=== PATIENT | female | born 1985 | race Two or more races ===

== ENCOUNTER 2024-07-21 16:33 | Inpatient (IN) ==
--- NOTE | 2024-07-21 16:39 | ED Physician Documentation ---
History of Present Illness Stated complaint Stated Complaint: TRAUMA/ DOG BITE Chief complaint Chief Complaint: Trauma Ext History obtained from History obtained from: Patient and EMS History of Present Illness Pain level max: 9 Pain level now: 9 Additonal information Additional information: 39-year-old female presents to the emergency department stating that she was bit by a dog on the forearm. She states it was a neighbors dog. Unknown last tetanus shot. Patient has pain to the right arm. There are also some slight abrasions to the lower abdomen. Not on blood thinners. Does not take any medications at home. Denies being . A tourniquet was applied to the right upper arm by EMS and the patient was activated as a full trauma by nursing staff. Patient denies any numbness or tingling. Review of Systems Constitutional Denies: Fever or Chills Respiratory Denies: Cough Meds/Allgy Allergies Allergies Allergy/AdvReac Type Severity Reaction Status Date / Time house dust mite Allergy Severe angioedema Verified 07/21/24 16:49 sumatriptan (From Imitrex) Allergy Severe throat Verified 07/21/24 21:18 swelling ibuprofen Allergy Edema Verified 07/21/24 21:18 PFSH Active Problems All Active Problems (Updated 07/21/24 @ 16:51 by Ty Jung MD) Dog bite of right forearm (Acute) Medical History Medical History (Updated 07/21/24 @ 16:51 by Ty Jung MD) No pertinent past medical history Surgical History Surgical History (Updated 07/21/24 @ 16:51 by Karen Chong RN) No pertinent past surgical history Social History Social History (Updated 07/21/24 @ 16:51 by Karen Chong RN) Smoking Status: Never smoker Living arrangement: At home Living Condition: With family Relationship: Do you feel safe in your home environment?: Yes Suffered physical, verbal, emotional, or financial abuse?: No ETOH Use: Wine Frequency: Occasional Substance Use: denies use Exam Exam Vital Signs: Vital Signs x48h Temp Pulse Resp BP Pulse Ox 07/21/24 18:15 80 14 112/55 L 98 07/21/24 18:00 87 16 102/61 98 07/21/24 17:15 84 14 102/54 L 95 07/21/24 17:03 81 16 120/77 96 07/21/24 16:39 36.5 C 82 20 120/77 97 Constitutional normal general appearance and no apparent distress HENMT normocephalic and head/scalp atraumatic Eyes PERRL Neck/C-Spine trachea midline Respiratory breath sounds equal bilaterally and normal respiratory effort Cardiovascular normal heart rate noted and regular rhythm noted Gastrointestinal abdomen soft to palpation, nontender to palpation and nondistended Back/Pelvis no thoracic spine tenderness and no lumbar spine tenderness Extremities Right forearm has a large gaping laceration down through the muscle. Neurovascularly intact. Able to move fingers and hand but limited examination secondary to pain. Psychiatry oriented x3 Skin skin color normal Results Vitals Vitals: Vital Signs - 24 hr 07/21/24 16:39 07/21/24 16:52 07/21/24 17:03 Temperature 36.5 C Temperature Source Temporal Artery Scan Pulse Rate 82 81 Respiratory Rate 20 16 Blood Pressure 120/77 120/77 O2 Saturation 97 96 O2 Source Room air Room air Pain Intensity 6 10 07/21/24 17:14 07/21/24 17:15 07/21/24 18:00 Temperature Temperature Source Pulse Rate 84 87 Respiratory Rate 14 16 Blood Pressure 102/54 L 102/61 O2 Saturation 95 98 O2 Source Room air Room air Pain Intensity 8 07/21/24 18:15 Temperature Temperature Source Pulse Rate 80 Respiratory Rate 14 Blood Pressure 112/55 L O2 Saturation 98 O2 Source Room air Pain Intensity Oxygen O2 Source Room air Labs Labs: Laboratory Tests 07/21/24 17:10 WBC 15.9 H RBC 4.60 Hgb 13.9 Hct 42.0 MCV 91.3 MCH 30.2 MCHC 33.1 RDW 13.3 Plt Count 270 MPV 11.2 H Neut # (Auto) 12.2 H Lymph # (Auto) 2.9 [place] # (Auto) 0.6 Eos # (Auto) 0.1 Baso # (Auto) 0.1 Absolute Nucleated RBC 0.00 Nucleated RBC % 0.0 Sodium 138 Potassium 3.3 L Chloride 105 Carbon Dioxide 22 Anion Gap 11.0 BUN 16 Creatinine 0.9 Estimated GFR (MDRD) 70 L Glucose 123 H Calcium 8.8 Total Bilirubin 0.5 AST 23 ALT 26 Alkaline Phosphatase 64 Total Protein 7.6 Albumin 4.2 Globulin 3.4 Albumin/Globulin Ratio 1.2 Serum HCG, Qual NEGATIVE Rads (name of study) R forearm xray: Relevant Findings:: Final report received PD Medical Decision Making ED course Complexity details: reviewed results, re-evaluated patient, considered differential and d/w patient ED course: 39-year-old female with a significant dog bite to the right forearm deep gaping wound through the muscle belly. Given IV Unasyn. Tdap given. Discussed the case with Dr. Mrax, orthopedics who came and evaluated the patient and will take her to the operating room for washout and closure. Only other dog injuries that I see are small abrasions on the abdomen that do not require further care. No ot her acute traumatic injuries This document was made in part using voice recognition software. While efforts are made to proofread this document, sound alike and grammatical errors may occur. Discharge Plan Discharge Patient Disposition: ED Transfer to [facility] Condition: Stable Clinical Impression: Dog bite of right forearm Qualifiers: Encounter type: initial encounter Qualified Code(s): S51.851A - Open bite of right forearm, initial encounter Interventions: ED Admission Assessment Last Done: 07/21/24 18:20
[2024-07-21] MEDS: HYDROmorphone 1 MG/ML SYRINGE IVP STA ×2 (16:52→17:14)
[2024-07-21] MEDS: TETANUS/DIPHTHERIA/PERTUSSIS 0.5 ML SYRINGE IM ONE (16:53)
[2024-07-21] MEDS: AMPICILLIN/SULBACTAM 3 GM in SODIUM CHLORIDE 0.9% MINIBAG 100 ML IV STA (16:53)
--- NOTE | 2024-07-21 17:05 | XRAY Report ---
PROCEDURE: XR Forearm RT INDICATIONS: BOG BITE TO THE ARM TECHNIQUE: 2 views of the forearm were acquired. COMPARISON: None. FINDINGS: Bones: No fractures or dislocations. No suspicious bony lesions. Soft tissues: Extensive soft tissue laceration over dorsal and ulnar aspect of right forearm is seen. No radiopaque foreign body is noted. IMPRESSION: No acute forearm fracture or dislocation. Extensive soft tissue laceration in dorsal and ulnar aspect of proximal to mid forearm. No radiopaque foreign body. Reviewed by: Brandon Adams MD on 07/21/2024 5:04 PM PDT Approved by: Brandon Adams MD on 07/21/2024 5:04 PM PDT Station ID: [id number]
--- NOTE | 2024-07-21 17:11 | ANESTHESIA PROCEDURE NOTE ---
Pre-Anesthesia VS, & Labs Diagnosis Surgical Diagnosis:: R FA dog bite laceration Procedure Procedure: I&D R FA laceration/closure Vitals Vital Signs: Temp Pulse Resp BP Pulse Ox 36.5 C 82 20 120/77 97 07/21/24 16:39 07/21/24 16:39 07/21/24 16:39 07/21/24 16:39 07/21/24 16:39 NPO NPO: >8 hours Is Patient ?: No Lab Results Lab results reviewed: Yes Meds/Allgy Allergies Allergies Allergy/AdvReac Type Severity Reaction Status Date / Time house dust mite Allergy Severe angioedema Verified 07/21/24 16:49 sumatriptan (From Imitrex) Allergy Severe throat Verified 07/21/24 16:49 swelling PFSH Active Problems All Active Problems (Updated 07/21/24 @ 16:51 by Ty Jung MD) Dog bite of right forearm (Acute) Medical History Medical History (Updated 07/21/24 @ 16:51 by Ty Jung MD) No pertinent past medical history Surgical History Surgical History (Updated 07/21/24 @ 16:51 by Karen Chong RN) No pertinent past surgical history Social History Social History (Updated 07/21/24 @ 16:51 by Karen Chong RN) Smoking Status: Never smoker Living arrangement: At home Living Condition: With family Relationship: Do you feel safe in your home environment?: Yes Suffered physical, verbal, emotional, or financial abuse?: No ETOH Use: Wine Frequency: Occasional Substance Use: denies use POLST Patient has POLST: No Anesthesia Exam (Expanded) Exam General: Alert, Oriented x3, Cooperative and Mild distress Dental: WNL Mouth Openin Fingerbreadth Neck Mobility: Normal Mallampati classification: II Thyromental Distance: 4-6 cm Respiratory: Lungs clear, Normal breath sounds and No respiratory distress Cardiovascular: Regular rate Neurological: Normal speech Mental/Cognitive Status: Alert/Oriented X3 and Normal for patient Cognitive Status: Within normal limits Exam Exam Vital Signs: Vital Signs x48h Temp Pulse Resp BP Pulse Ox 07/21/24 16:39 36.5 C 82 20 120/77 97 Plan Plan Anesthesia Type: General Consent for Procedure(s) Verified and Reviewed: Yes Code Status: Attempt Resuscitation ASA Classification ASA classification: 2-Mild systemic disease Is this case an emergency?: Yes
[2024-07-21 17:18] LABS: BASOPHILS # (AUTO) 0.1 10^3/uL (0.0-0.1); BASOPHILS % (AUTO) 0.5 %; EOSINOPHILS # (AUTO) 0.1 10^3/uL (0.0-0.7); EOSINOPHILS % (AUTO) 0.4 %; HGB - HEMOGLOBIN 13.9 g/dL (12.0-16.0); LYMPHOCYTES # (AUTO) 2.9 10^3/uL (1.5-3.5); LYMPHOCYTES % (AUTO) 18.1 %; MEAN CORPUSCULAR HEMOGLOBIN 30.2 pg (27.0-31.0); MEAN CORPUSCULAR HGB CONC 33.1 g/dL (32.0-36.0); MEAN CORPUSCULAR VOLUME 91.3 fL (81.0-99.0); MEAN PLATELET VOLUME 11.2 fL (7.9-10.8); MONOCYTES # (AUTO) 0.6 10^3/uL (0.0-1.0); NEUTROPHILS # (AUTO) 12.2 10^3/uL (1.5-6.6); NEUTROPHILS % (AUTO) 76.7 %; PLT - PLATELET COUNT 270 10^3/uL (130-450); RED CELL DISTRIBUTION WIDTH 13.3 % (12.0-15.0); WHITE BLOOD COUNT 15.9 x10^3/uL (4.8-10.8)
[2024-07-21] MEDS ORDERED: LIDOCAINE-PF 2% 10 ML AMP SUBQ ONE (17:20)
[2024-07-21] MEDS ORDERED: fentaNYL 100 MCG/2 ML VIAL ONE (17:20)
[2024-07-21] MEDS ORDERED: MIDAZOLAM 2 MG/2 ML VIAL ONE (17:20)
[2024-07-21] MEDS ORDERED: PROPOFOL 200 MG/20 ML VIAL IVP ONE (17:20)
[2024-07-21 17:39] LABS: ALBUMIN 4.2 g/dL (3.2-5.5); ALBUMIN/GLOBULIN RATIO 1.2 (1.0-2.2); ALKALINE PHOSPHATASE 64 IU/L (42-121); ALT ALANINE AMINOTRANSFERASE 26 IU/L (10-60); AST ASPARTATE AMINOTRANSFERASE 23 IU/L (10-42); BILIRUBIN,TOTAL 0.5 mg/dL (0.2-1.0); BUN - BLOOD UREA NITROGEN 16 mg/dL (6-20); CALCIUM 8.8 mg/dL (8.5-10.3); CARBON DIOXIDE - CO2 22 mmol/L (21-32); CHLORIDE 105 mmol/L (101-111); CREATININE 0.9 mg/dL (0.6-1.3); GFR - MDRD 70 (>89); GLUCOSE 123 mg/dL (74-104); POTASSIUM 3.3 mmol/L (3.5-4.5); SODIUM 138 mmol/L (135-145); TOTAL PROTEIN 7.6 g/dL (6.4-8.9)
[2024-07-21 17:40] LABS: HCG,QUALITATIVE BLOOD NEGATIVE
[2024-07-21] MEDS ORDERED: DEXAMETHASONE 4 MG/ML VIAL ONE (18:33)
[2024-07-21] MEDS ORDERED: ONDANSETRON 4 MG/2 ML VIAL ONE (18:33)
--- NOTE | 2024-07-21 18:33 | HISTORY & PHYSICAL EXAMINATION ---
History of Present Illness History of Present Illness HPI Comment/Other: Date of injury: 07/21/2024 39-year-old [id number] female with dog bite to right upper extremity. She was evaluated in the emergency room where an x-ray was performed and no fractures were identified. The patient has a large soft tissue wound to her right forearm and 1 puncture wound to the posterior aspect of her upper arm. She denies any numbness, tingling or paresthesias. Her tetanus was updated in the emergency room and she was given a dose of Unasyn. Past medical history none Past surgical history none Medications none Allergies include Imitrex Social history the patient denies tobacco use drug use and rarely drinks alcohol She works as a caregiver Physical exam reveals a well-developed well-nourished 39-year-old in no acute distress. Right upper extremity demonstrates that she has an 8 cm wound to her forearm with muscle protruding from the wound she also has a 1 cm puncture at the posterior aspect of her arm. Her sensation is intact to light touch in the radial ulnar and median nerve distributions Her radial pulses 2+ and she has brisk capillary refill She has 5 out of 5 EDC EIP EPL she has slight firing of her EPB. She has 5 out of 5 FPL FDP and FDS to all fingers 2 views of her right forearm demonstrate no evidence of fracture, dislocation or soft tissue lesion. Assessment: 39-year-old fjlse-xzmu-ixzhpwes female with dog bite to the right forearm that is quite deep Plan the patient has been n.p.o. for the entirety of the day so the plan is for incision irrigation and debridement of her forearm wound as well as irrigation and debridement of her tricep wound. I discussed with her the risk, benefits and alternatives of surgical versus nonsurgical treatment to include but not limited to damage to arteries, veins, nerves, need for additional surgery, stiffness of the arm, risks of infection, and risk with anesthesia. She understands all these risks, all her questions were answered. Meds/Allgy Allergies Allergies Allergy/AdvReac Type Severity Reaction Status Date / Time house dust mite Allergy Severe angioedema Verified 07/21/24 16:49 sumatriptan (From Imitrex) Allergy Severe throat Verified 07/21/24 16:49 swelling PFSH Active Problems All Active Problems (Updated 07/21/24 @ 16:51 by Ty Jung MD) Dog bite of right forearm (Acute) Medical History Medical History (Updated 07/21/24 @ 16:51 by Ty Jung MD) No pertinent past medical history Surgical History Surgical History (Updated 07/21/24 @ 16:51 by Karen Chong, RN) No pertinent past surgical history Social History Social History (Updated 07/21/24 @ 16:51 by Karen Chong, DANNIELLE) Smoking Status: Never smoker Living arrangement: At home Living Condition: With family Relationship: Do you feel safe in your home environment?: Yes Suffered physical, verbal, emotional, or financial abuse?: No ETOH Use: Wine Frequency: Occasional Substance Use: denies use POLST Patient has POLST: No Exam Exam Vital Signs: Vital Signs x48h Temp Pulse Resp BP Pulse Ox 07/21/24 17:15 84 14 102/54 L 95 07/21/24 17:03 81 16 120/77 96 07/21/24 16:39 97.7 F 82 20 120/77 97 Conclusion/Plan Lab Results Lab results reviewed: Yes 07/21/24 17:10 07/21/24 17:10
--- NOTE | 2024-07-21 18:33 | Preop H&P Attestation ---
Preop H&P Attestation Preop History & Physical Preop H&P Date: 07/21/24 History & Physical Reviewed and patient examined today.: No change
[2024-07-21] MEDS ORDERED: SODIUM CHLORIDE FLUSH 0.9% 10 ML SYRINGE IVP PRN (18:59)
[2024-07-21] MEDS ORDERED: KETOROLAC 30 MG/ML VIAL ONE (19:29)
[2024-07-21] MEDS ORDERED: BUPIVACAINE 0.5% PF 10 ML VIAL ONE (19:31)
[2024-07-21] MEDS ORDERED: ACETAMINOPHEN 1,000 MG/100 ML 1,000 MG/100 ML BAG IV ONE (19:33)
--- NOTE | 2024-07-21 20:35 | OPERATIVE REPORT ---
Operative Report General Admit Date: 07/21/24 Procedure Data: Operation Date: 07/21/24 17:15 Proposed Procedures p Incision and Drainage(Right) - Rhina Momin DO Anesthesia Type General Case Staff Anesthesia Provider: Bryce Fox Assisting Provider: Andreia Del Rosario Case Times Procedure Start: 07/21/24 18:54 Time out: 07/21/24 18:52 Other Other Information/Narrative: Preoperative diagnosis: Numerous dog bites to the right upper extremity with deep wounds through the extensor muscle bellies POst operative diagnosis: same as above Surgery performed: Incision, Irrigation, Debridement, and closure of numerous right upper extremity dog bites Surgeon: Rhina Momin D.O. Room Service Attendant: Andreia Del Rosario PA-Alan EBL 20 Anesthesia: General anesthesia Surgery in detail: The patient was met in the emergency room room and her right upper extremity was signed as correct extremity. She was taken back to the operating room and placed in supine position. General anesthesia was induced. The patient was prepped and draped in the standard sterile fashion. A timeout was performed confirm the correct patient, correct procedure, correct extremity and initials on the operative site. The wounds were all explored and copiously irrigated he. A hemostat was used to widen the wounds and the wounds were explored and irrigated. The patient had numerous dog bites over the posterior aspect backed of her arm and her forearm. The largest was approximately 8 cm in length. There was significant destruction of the underlying muscles with laceration through the muscle bellies. The extensor muscle bellies were approximated with FiberWire suture and 0 Vicryl. After copious irrigation the wounds were closed with 2-0 Vicryl and 2-0 nylon. A total of 25 cc of half percent Marcaine was utilized to anesthetize the wounds. Sterile dressings were applied consisting of Xeroform, plain gauze, sterile Webril and the extremity was splinted with a posterior splint. THe patient will be admitted overnight for 24 hours of IV antibiotics and discharged home with Augmentin. I will see her back in one week for a wound check. She should elevate the upper extremity above heart level.
--- NOTE | 2024-07-21 20:39 | ANESTHESIA POST OP EVALUATION ---
Anesthesia Post Eval Post Anesthesia Eval Vitals: Last Vital Signs Temp 36.4 C L 07/21/24 20:23 Pulse 86 07/21/24 20:31 Resp 13 07/21/24 20:31 BP 102/62 07/21/24 20:31 Pulse Ox 97 07/21/24 20:31 CV Function Including HR & BP: Stable Pain Control: Satisfactory Nausea & Vomiting: Addtional Therapies Ordered (c/o nausea, no pain, zofran intra-op) Mental Status: Baseline Respiratory Status: Airway Patent Hydration Status: Satisfactory Anesthesia Complications: None
[2024-07-21] MEDS ORDERED: METOCLOPRAMIDE 10 MG/2 ML VIAL IVP PRN (21:00)
[2024-07-21] MEDS ORDERED: fentaNYL 100 MCG/2 ML VIAL IVP PRN (21:00)
[2024-07-21] MEDS ORDERED: HYDROmorphone 0.5 MG/0.5 ML SYRINGE IVP PRN (21:00)
[2024-07-21] MEDS ORDERED: MORPHINE 2 MG/ML CARPUJECT IVP PRN (21:00)
[2024-07-21] MEDS ORDERED: NALOXONE 0.4 MG/ML VIAL IVP PRN (21:00)
[2024-07-21] MEDS ORDERED: ONDANSETRON 4 MG/2 ML VIAL IVP PRN (21:00)
[2024-07-21] MEDS ORDERED: ATROPINE ABBOJECT 1 MG/10 ML SYRINGE IVP PRN (21:00)
[2024-07-21] MEDS ORDERED: ePHEDrine 50 MG/ML VIAL IVP PRN (21:00)
[2024-07-21] MEDS: NS W/20 MEQ KCL 1,000 ML IV SCH (22:30)
[2024-07-21] MEDS: oxyCODONE 5 MG TABLET PO PRN (22:31)
[2024-07-21] MEDS: DOCUSATE SODIUM 100 MG CAPSULE PO SCH (22:31)
[2024-07-21] MEDS: ACETAMINOPHEN 325 MG TABLET PO PRN (23:48)
[2024-07-21] MEDS: SODIUM CHLORIDE FLUSH 0.9% 10 ML SYRINGE IVP SCH (23:48)
[2024-07-22] MEDS: ONDANSETRON ODT 4 MG TABLET TL PRN (00:27)
[2024-07-22] MEDS: AMPICILLIN/SULBACTAM 3 GM in SODIUM CHLORIDE 0.9% MINIBAG 100 ML IV SCH (00:30)
[2024-07-22] MEDS: PROCHLORPERAZINE 5 MG TABLET PO ONE (02:43)
[2024-07-22 05:36] VITALS: TEMP 97.9
[2024-07-22] MEDS: LACTATED RINGERS 1,000 ML IV SCH (07:31)
--- NOTE | 2024-07-22 07:50 | Discharge Summary ---
"Discharge Summary Admit Date: 07/21/24 Discharge Date: 07/22/24 Discharging Provider: DIANA Kennedy Code Status: Attempt Resuscitation DIAGNOSES Admission Diagnoses: Dog bite right arm, open wound Discharge Diagnoses with Status of Each Condition: Dog bite right arm, open wound - status post irrigation and debridement in operating room with primary wound closure HPI History of Present Illness: 39-year-old [id number] female presented to the emergency department after sustaining a dog bite to the right upper extremity. X-rays were performed which showed no fracture or foreign body to the right upper extremity. On exam there was a large soft tissue wound to the right forearm and several puncture wounds to the posterior aspect of her upper right arm. She denied numbness and tingling as well as paresthesias of the right upper extremity. Her tetanus status was updated in the emergency room room and she was given IV Unasyn at 16:30. Orthopedic surgery was consulted. CONSULTS | PROCEDURES Consultations: Orthopedic surgery Procedures: Irrigation debridement right upper extremity 07/21/[address] Momin HOSPITAL COURSE Hospital Course: On 07/21/2024 the patient was brought to the operating room for irrigation debridement of right upper extremity wounds and exploration. There were no immediate complications in the operating room. The wounds were irrigated and closed primarily. She was splinted and placed in a simple sling. She is made nonweightbearing to the right upper extremity. She was transferred to the medical surgical floor where her pain was managed with oral analgesics. Her vital signs were stable and she tolerated an oral diet. She received IV Unasyn for 24 hours from initial presentation. On postoperative day 1 she was discharged home with oral course of Augmentin with close postoperative follow-up plan for [address] Momin at the [facility] orthopedic clinic. ALLERGIES Allergies Allergy/AdvReac Type Severity Reaction Status Date / Time house dust mite Allergy Severe angioedema Verified 07/21/24 16:49 sumatriptan (From Imitrex) Allergy Severe throat Verified 07/21/24 21:18 swelling ibuprofen Allergy Edema Verified 07/21/24 21:18 MEDICATIONS Ambulatory Orders Medication Instructions Recorded Confirmed acetaminophen 325 mg tablet 975 mg (3 x 325 mg) PO Q4HR PRN 07/22/24 Pain 1 to 4, or Fever #100 tabs amoxicillin 875 mg-potassium 1 tab PO BID 7 days #14 tabs 07/22/24 clavulanate 125 mg tablet docusate sodium 100 mg capsule 100 mg PO BID #20 caps 07/22/24 fexofenadine 180 mg tablet 180 mg PO DAILY 07/22/24 07/22/24 (Olya Hives) multivitamin 1 tab PO DAILY 07/22/24 07/22/24 ondansetron 4 mg disintegrating 4 mg translingual Q6HR PRN Nausea 07/22/24 tablet / Vomiting #12 tabs oxycodone 5 mg tablet 5 mg PO Q4HR PRN Pain 5 to 7 #20 07/22/24 tabs PHYSICAL EXAM AT DISCHARGE Vital Signs: Vital Signs x48h Temp Pulse Resp BP Pulse Ox 07/22/24 12:40 36.6 C 82 16 102/58 L 94 07/22/24 07:37 36.6 C 60 14 97/56 L 96 Physical Exam Other/Comments: Dressing dry and in tact with some sanguinous drainage to jay wrap dressings, sling in place to right upper extremity Sensation grossly intact to right upper extremity Ability to actively extend fingers and wrist is limited however she is able to maintain extension if placed in a position of extension at the fingers and thumb Left hip and groin with several superficial wounds, covered with simple dressings. No surrounding erythema or drainage. Ecchymosis surrounding the wounds. LABS 07/21/24 17:10 07/21/24 17:10 DIAGNOSTIC IMAGING Diagnostic Imaging Results: Read independently FOLLOW UP Follow Up: Dr Momin at [facility] in 1 week - [phone] TIME SPENT Time Spent in Discharge (Minutes): 40 Discharge Plan Discharge Patient Disposition: LINDA, Self Care Condition: Stable Prescriptions: New acetaminophen 325 mg Tablet 975 mg PO Q4HR PRN (Reason: Pain 1 to 4, or Fever) Qty: 100 0RF docusate sodium 100 mg Capsule 100 mg PO BID Qty: 20 0RF ondansetron 4 mg Tablet,Disintegrating 4 mg translingual Q6HR PRN (Reason: Nausea / Vomiting) Qty: 12 0RF oxycodone 5 mg Tablet 5 mg PO Q4HR PRN (Reason: Pain 5 to 7) Qty: 20 0RF amoxicillin-pot clavulanate 875-125 mg tablet 1 tab PO BID 7 Days Qty: 14 0RF Continued multivitamin Tablet 1 tab PO DAILY fexofenadine [Olya Hives] 180 mg tablet 180 mg PO DAILY Discontinued acetaminophen 325 mg tablet 325 mg PO Q4H PRN (Reason: pain) Activity Restrictions: Additional Comments Activity Restrictions/Additional Instructions: SURGICAL PROCEDURE: Irrigation and Debridement of Right Forearm with Muscle Repair SURGEON: DR MOMIN DATE: 07/21/24 at [facility] ACTIVITY INSTRUCTIONS - You are non weight bearing to the right upper extremity. We encourage active movement of the fingers every hour while awake to prevent stiffness. - You must be cleared by your orthopedic provider before operating a vehicle. DRESSING CARE - You have a bulk dressing with a plaster splint that is secured with an Jay bandage. Leave the dressing in place until your follow up in the orthopedic clinic. - Keep extremity elevated to the level of the heart to reduce swelling. You can use ice on top of the splint to reduce pain and swelling of the extremity. - If you notice fever, chills, redness, excessive drainage or bleeding, a sharp increase in pain that persists after taking pain medication, pain in your calf muscles, chest pain or trouble breathing please unwrap the dressing and investigate. Then call the office with findings for further guidance. If it is after regular clinic hours, please seek care in the emergency department. - If you need to take a shower cover the dressing in a garbage bag and secure it to keep the dressing dry and intact. You may allow shower water to wash over the wounds on your hip to clean them. Please use simple bandages about the hip wounds to keep them clean and dry. If you notice redness, drainage, fever or chills call the orthopedic office or seek care in the emergency department. - In the rare case of any severe chest pain and trouble breathing, seek immediate care, do not delay for a call to the clinic. POST-OPERATIVE INSTRUCTIONS - Ice on top of the splint for 15 minutes if needed for control of pain and swelling - You may resume your normal diet if there is no nausea or vomiting. You may want to avoid spicy, greasy, or heavy foods today to minimize gas. - If nausea or vomiting occurs, don't eat or drink anything for one hour. Then start drinking small amounts of clear liquids. Later, add crackers, gradually building up to your usual diet. - Follow up with the orthopedic clinic in 1 weeks. Call our office at [phone] with any concerns MEDICATIONS - Take three pills of 325 mg Tylenol (acetaminophen) every 8 hours regardless of pain in a scheduled manner. Do not exceed 3000 mg of Tylenol (from ALL sources, including over the counter combination products) in a 24-hour period due to risk of liver injury. - Take one pill of 5 mg oxycodone by mouth every 4-6 hours as needed for break through pain stronger than 7 out of 10 on a pain scale. Take this for severe pain 1 hour after taking the scheduled Tylenol. Avoid all NSAIDs given your allergy to ibuprofen. - Take 200 mg of Colace by mouth every 12 hours for constipation. Narcotic medications such as oxycodone may increase your risk of constipation after surgery. - Take 4 mg of Zofran by mouth every 6 hours as needed for uncontrolled nausea or vomiting. If you have persistent nausea and vomiting call our office or seek care in the emergency department. - Take 1 tablet of Augmentin every 12 hours as prescribed for 7 days. This is an antibiotic and needs to be taken in its entire course to prevent infection. Do not stop this medication early. 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 Please research [facility] for assistance during this period. Bring the paperwork to the orthopedic visit next week. Call our office with questions or concerns. Diet: Regular Health Concerns: You were admitted to the hospital for irrigation and debridement (washing wounds with copious amounts of water) of your right forearm after a dog bite. Your wounds were closed with sutures and you were splinted to allow the muscles time to rest and heal. You were provided a sling to support the arm. The sling and splint should remain in place until your follow up with Dr Momin. You were also given IV antibiotics to prevent infection after the dog bite. Care Plan Goals: Improvement in function of wrist and closure of wounds Assessment: These instructions were discussed with the patient and her who verbalized understanding and agreement. Written instructions were provided as a reminder Plan of Treatment: You underwent surgery to washout the wounds and reduce risk of infection. You also received IV antibiotics for this infection. You were discharged with oral antibiotics to take to decrease risk of infection. Take these antibiotics as prescribed. You were provided a splint to allow the muscles to rest and scar down and heal. Leave the splint and dressing in place. Print Language: Estonian Patient Instructions: Surgery Anesthesia After Stand Alone Forms: PCP List Follow-up Care: Rhina Momin DO [Provider Admit Priv/Credential] -"
--- NOTE | 2024-07-22 12:27 | PHARMACY PROGRESS NOTE ---
Best Possible Medication History Admit Date and Time: 07/21/24 1822 Home Medications Medication Instructions Recorded Confirmed Type acetaminophen 325 mg tablet 325 mg PO Q4H PRN pain 07/22/24 07/22/24 History fexofenadine 180 mg tablet 180 mg PO DAILY 07/22/24 07/22/24 History (Olya Nunez) multivitamin 1 tab PO DAILY 07/22/24 07/22/24 History oxycodone 5 mg tablet 5 mg PO Q4HR PRN Pain 5 to 7 #20 07/22/24 Rx tabs Processed by: Pharmacy (Medication reconciliation completed by Jumbo OperatorAmie.) Medications reviewed in ED?: No Medication History completed: Yes Patient Interview: Completed Secondary Source(s): Insurance records [facility] Statement: As the person ultimately responsible for medication therapy, providers are able to order a medication from an existing home medication list in [facility] via the "Reconcile Routine" prior to Confirmation of that medication by accounting support specialist. Such practice is discouraged except when the physician, in their clinical judgment, deems that a medical need exists for a medication without regard to previous use.
[2024-07-22 15:43] VITALS: BP 101/58
[2024-07-22 16:02] VITALS: O2SAT 98
--- NOTE | 2024-07-23 04:01 | XRAY Report ---
PROCEDURE: XR Humerus RT INDICATIONS: dog bite TECHNIQUE: 2 views of the humerus were acquired. COMPARISON: None. FINDINGS: Bones: No fractures or dislocations. No suspicious bony lesions. Soft tissues: No suspicious soft tissue calcifications or masses. IMPRESSION: No acute bony abnormality. Reviewed by: Jose Beck MD on 07/23/2024 4:00 AM PDT Approved by: Jose Beck MD on 07/23/2024 4:00 AM PDT Station ID: [id number]
== END 2024-07-22 17:40 | disposition home or self-care (01) | DRG 581 ==
LOC: ED 16:33 → MS2 18:20
PROVIDERS: ADMIT Physician Assistant Surgical; ATTEND Physician Assistant Surgical
DX: W54.0XXA Bitten by dog, initial encounter; S51.851A Open bite of right forearm, initial encounter; Z23 Encounter for immunization